=== PATIENT | female | born 1995 | race Two or more races ===

== ENCOUNTER 2017-06-16 12:28 | Emergency (ER) | payer OTHER ==
[2017-06-16 12:36] VITALS: TEMP 97.8; BMI 27.8
[2017-06-16] MEDS ORDERED: IBUPROFEN 600 MG TABLET (FP) PO ONE ×2 (13:11→15:43)
--- NOTE | 2017-06-16 13:37 | PDOC ---
History of Present Illness <Rosa Manning - Last Filed: 06/16/17 15:28> - History of Present Illness Initial Comments: 06/16/17 13:32 21 yo F with no significant pmh who arrives EMS with R hip injury 2/2 mechanical fall. Pt. reports turning around in her house attempting to ambulate towards her crying child when she slipped on box and landed on R hip. Now complaints of severe, achy, R hip, and thigh pain. Endorses numbness along anterior aspect of thigh. Patient states that she was unable to ambulate following event 2/2 pain. Kimberly hip clicking/popping. Denies head trauma/pain , laceration, N/V, MONACO, vision changes, back pain, numbness/tingling in exts., or other injuries sustained. Denies OTC analgesia. Not anticoagulated. Recent childbirth 1 month ago. <Clyde Vargas - Last Filed: 06/16/17 15:47> - General Chief Complaint: Injury Stated Complaint: FALL Time Seen by Provider: 06/16/17 12:40 Past History <Rosa Manning - Last Filed: 06/16/17 15:28> - Past Medical History Asthma: Yes COPD: No - Suicide/Smoking/Psychosocial Hx Smoking History: Current every day smoker Number of Cigarettes Smoked Daily: 5 Information on smoking cessation initiated: No Hx Alcohol Use: No Drug/Substance Use Hx: No <Nba Vargasson - Last Filed: 06/16/17 15:47> - Past Medical History Allergies/Adverse Reactions: Allergies Allergy/AdvReac Type Severity Reaction Status Date / Time No Known Allergies Allergy Verified 06/16/17 12:30 Home Medications: Ambulatory Orders Ibuprofen [Motrin -] 600 mg PO TID #90 tablet 06/16/17 Review of Systems - Review of Systems Comments:: 06/16/17 13:32 GENERAL/CONSTITUTIONAL: No fever or chills. No weakness. HEAD, EYES, EARS, NOSE AND THROAT: No change in vision. No ear pain or discharge. No sore throat.- CARDIOVASCULAR: No chest pain or shortness of breath RESPIRATORY: No cough, wheezing, or hemoptysis. GASTROINTESTINAL: No nausea, vomiting, diarrhea or constipation. GENITOURINARY: No dysuria, frequency, or change in urination. MUSCULOSKELETAL:+ Rip and R femur pain. No joint or muscle swelling. No neck or back pain. SKIN: No rash NEUROLOGIC: No headache, vertigo, loss of consciousness, or change in strength/ sensation. ENDOCRINE: No increased thirst. No abnormal weight change HEMATOLOGIC/LYMPHATIC: No anemia, easy bleeding, or history of blood clots. ALLERGIC/IMMUNOLOGIC: No hives or skin allergy. <Clyde Vargas - Last Filed: 06/16/17 15:47> *Physical Exam - Vital Signs Last Vital Signs Temp Pulse Resp BP Pulse Ox 97.8 F 61 18 108/48 99 06/16/17 12:30 06/16/17 12:30 06/16/17 12:30 06/16/17 12:30 06/16/17 12:30 <Rosa Manning - Last Filed: 06/16/17 15:28> - Vital Signs Last Vital Signs Temp Pulse Resp BP Pulse Ox 97.8 F 61 18 108/48 99 06/16/17 12:30 06/16/17 12:30 06/16/17 12:30 06/16/17 12:30 06/16/17 12:30 - Physical Exam Comments: 06/16/17 13:32 GENERAL: Awake, alert, and fully oriented, in no acute distress HEAD: No signs of trauma, normocephalic, atraumatic EYES: PERRLA, EOMI, sclera anicteric, conjunctiva clear ENT: hearing grossly normal, nares patent, oropharynx clear without exudates. Moist mucosa NECK: Normal ROM, supple, no JVD, or masses LUNGS: No distress, speaks full sentences, clear to auscultation bilaterally HEART: Regular rate and rhythm, normal S1 and S2, no murmurs, rubs or gallops, peripheral pulses normal and equal bilaterally. EXTREMITIES : R greater trochanter ttp with no obvious gross bony abnormality, or abrasion. R ant. thigh ttp with absent ecchymosis. Exam limited 2/2 pain. Unable to assess active and passive ROM. Peripheral pulses intact and able to plantar/dorsiflex RLE (5/5). R leg non rotated. Normal inspection, Normal range of motion, no edema. No clubbing or cyanosis. SKIN: Warm, Dry, normal turgor, no rashes or lesions noted. <Clyde Vargas - Last Filed: 06/16/17 15:47> ED Treatment Course - ADDITIONAL ORDERS Additional order review: Laboratory Results 06/16/17 13:40 Serum , Qual Negative <Rosa Manning - Last Filed: 06/16/17 15:28> - RADIOLOGY Radiology Studies Ordered: Category Date Time Status FEMUR-RIGHT [RAD] Stat Radiology 06/16/17 13:09 Ordered HIP & PELVIS-RIGHT [RAD] Stat Radiology 06/16/17 13:09 Ordered KNEE 3 POS-RIGHT [RAD] Stat Radiology 06/16/17 13:09 Ordered <Clyde Vargas - Last Filed: 06/16/17 15:47> Medical Decision Making - Medical Decision Making 06/16/17 13:47 21 yo F with no significant pmh who arrives EMS with R hip injury 2/2 mechanical fall 1 hour [employer]. Complaints of severe, achy, R hip, and thigh pain.with asx. numbness along anterior aspect of thigh. Unable to ambulate following fall 2/2 pain. Denies head/neck/back trauma .No MONACO, N/V, MONACO, laceration, or other injuries sustained. Hemodynamically stable and atraumatic/ normocephalic on physical exam. There is R greater trochanter ttp with no obvious gross bony abnormality, or abrasion. R ant. thigh ttp with absent ecchymosis. ROM limited 2/2 pain. Neurovascularly intact distal extremities and able to plantar/dorsiflex RLE (5/5). Recent childbirth 1 month ago. We will obtain plain film to r/o fracture or dislocation of R hip/femur. ED Course: Serum Preg R HIP/PELVIS RAD, R FEMUR RAD, R KNEE RAD Ibuprofen 600 mg PO 11 06/16/17 15:47 Stable D/c with return precautions and advised to f/u within 1 week. D/c with crutches. <Clyde Vargas - Last Filed: 06/16/17 15:47> *DC/Admit/Observation/Transfer - Discharge Dispostion Admit: No <Rosa Manning - Last Filed: 06/16/17 15:28> <Clyde Vargas - Last Filed: 06/16/17 15:47> Diagnosis at time of Disposition: Contusion, hip Qualifiers: Encounter type: initial encounter Laterality: right Qualified Code(s): S70.01XA - Contusion of right hip, initial encounter - Discharge Dispostion Disposition: HOME Condition at time of disposition: Improved - Prescriptions Prescriptions: Ibuprofen [Motrin -] 600 mg PO TID #90 tablet - Referrals Referrals: Anastacio Vizcaino MD [Staff Physician] - - Patient Instructions Printed Discharge Instructions: Contusion Additional Instructions: take ibuprofen For pain 600 mg, every 8 hours as needed. Follow-up with orthopedics for pain beyond [address] Vizcaino, see referral information for phone number. Use crutches as needed. All x-rays show no broken bones. You can ice your hip to reduce pain and swelling
--- NOTE | 2017-06-16 15:25 | PDOC ---
Attending Attestation - Resident Resident Name: SamNbaClyde - ED Attending Attestation I have performed the following: I have examined & evaluated the patient, The case was reviewed & discussed with the resident, I agree w/resident's findings & plan, Exceptions are as noted - HPI HPI: 06/16/17 15:21 21-year-old female no past medical history here status post right hip injury. Patient states she was running after her child slipped. Tried to ambulate afterwards but had difficulty due to pain. Complaining of right femur right knee and right hip pain, pain is moderate, worse with movement. Denies head trauma neck or back pain. Patient states she is not and is refusing to urinate here in the ED - Physicial Exam PE: 06/16/17 15:23 awake alertNo acute distress. Head is atraumatic. Cardiac lung exam was unremarkable. Abdomen is soft nontender. Right anterior groin tender to palpation. No deformity no step-off. Mild right lateral hip tenderness. No ecchymosis knee FROM ankle, FROM, NT Distally neurovascularly intact - Medical Decision Making 06/16/17 15:25 21-year-old w Differential fracture Plan, x-ray knee and femur. likely DC wi and crutches as needed
[2017-06-16 16:05] VITALS: BP 112/74; PULSE 65
== END 2017-06-16 16:06 | disposition home or self-care (01) ==
LOC: JER 12:28
DX: S70.01XA Contusion of right hip, initial encounter (principal); W18.09XA Striking against other object with subsequent fall, initial encounter; Y93.89 Activity, other specified; Y92.038 Other place in apartment as the place of occurrence of the external cause
CPT/HCPCS: 36415; 73523-TC; 73552-TC-RT; 73562-TC-RT; 84703; 99282-25